=== PATIENT | female | born 1995 | race Caucasian/White ===

== ENCOUNTER 2016-12-02 14:29 | Emergency (ER) | payer OTHER ==
[2016-12-02 14:38] VITALS: BP 115/82; PULSE 75; RESP 18
--- NOTE | 2016-12-02 17:58 | ED.REPORT ---
HPI-Head Prob / Injury Date of Service Dec 02, 2016 ED Provider: Marc Cabrales MD Pt is a 21 y/o healthy female presenting to the ED due to minor facial injury onset prior to arrival. The patient was walking outside the hospital and slipped on the sidewalk and had a facial injury. She was able to walk into the ED without problem prior to arrival. She c/o associated dizziness, mild right wrist pain. Pt denies vomiting, neck pain, change LOC, vision change. The patient was walking to the CT scan area to receive an abdominal CT scan because she has been having abdominal pain for a few weeks. The scan was ordered by Eyal Barreto. Nursing Notes Stated Complaint: FELL HIT FACE Chief Complaint: Head, Face, Neck Trauma Nursing Notes Reviewed: Yes Allergies: Coded Allergies: No Known Allergies (Unverified , 12/02/16) General Time Seen by Provider: 18:19 Chief Complaint Abrasion Hx Obtained From: Patient Arrived By: Walk-in Onset Occurred: Just prior to arrival Symptom Duration: Since onset Progression Since Onset: Unchanged Caused by: Fall from (ground) Location: : Chin: Mouth Quality: Painful Severity: Current: Mild Severity: Maximum: Mild Similar Sx Previous: No Past Medical History Past Medical History Migraines Past Surgical History None reported Smoking History Unknown if Ever Smoker Ambulatory Status Independent Review of Systems GI: Denies: Abdominal pain, Vomiting Musculoskeletal: Denies: Neck pain Neurologic: Reports: Dizziness, Headache, Denies: Change LOC, Syncope Complete sys rev & neg: except as marked. Cardiovascular: Denies: Chest pain Physical Exam Initial Vital Signs Vital Signs (First) Date Time Temp Pulse Resp B/P Pulse Ox O2 Delivery O2 Flow Rate FiO2 12/02/16 14:38 36.7 75 18 115/82 Room Air 12/02/16 18:35 99 Initial VS: Reviewed, Vital signs normal Respiratory: Breath sounds normal, Clear to auscultation, No respiratory distress Cardiovascular: Regular rate & rhythm, Heart sounds normal, Intact distal pulses Abdomen / GI: Soft, Non-tender, No guarding, No rebound, No distention Skin: Warm, Dry, No cyanosis Psychiatric: Mood/affect normal, Behavior normal, Normal thought content Head / Eyes: Atraumatic, Normocephalic, PERRL, EOMI, No nystagmus, No periorbital redness, No periorbital swelling Abrasion upper lip Abrasion over chin, right ala, bridge - do not require sutures ENT: Atraumatic, Airway patent, Mucous membranes moist, Pharynx NL, Nose exam NL Large hemotoma upper lip, more on left than right Normal occlusion Tooth #9 tender Mild blood around tooth #8 and #9 Neck: Atraumatic, Supple, No meningismus, Full range of motion, No swelling, Non-tender, No midline vertebral tend Neurologic: Oriented X3, Speech NL, No motor deficits, No sensory deficits, CN II - XII intact, Cerebellar NL, Memory NL Upper Extremity / MS: Full range of motion, No swelling, Non-tender, No snuffbox tenderness, No erythema, No deformity, Neurologic intact, Vascular intact, No ligamentous injury, Tendon function NL, No compartment syndrome, No circumferential injury, No clubbing/cyanosis, No edema Interpretation & Diagnostics Lab Results Interpretation Test 12/02/16 17:50 Hold Urine Received (Received) Re-Eval/Medical Decision Source of Hx: Old records Re-Evaluation/Progress : Time of Eval: 18:27 Patient Status: Condition improved, Moderate relief, Pain improved Re-Evaluation/Progress Note: Pt rechecked. Informed pt of plan for treatment. Pt understands and agrees with plan for treatment. F/U instructions and RTER warnings given. All questions addressed. Counseled Regarding: Diagnosis, Need for follow-up, When/why to return to ED Discharge & Departure Primary Impression: Facial abrasion Encounter type: initial encounter Qualified Code: S00.81XA - Abrasion of other part of head, initial encounter Additional Impressions: Fall from ground level Tooth injury Disposition: Home All VS Reviewed: Yes Condition: Stable Patient Instructions: Abrasion (ED), Acute Wound Care (ED), Minor Head Injury ( ED) Additional Instructions: No dangerous injuries are discovered on your examination today. Use ibuprofen 800 mg every 8 hours as needed for pain. You can also use additionally, Tylenol 1000 mg every 6 hours for pain. I recommend ice packs as needed for pain for the first couple of days. Use antibiotic ointment 2-3 times a day to keep the wound moist. After 3 days begin using Mederma with sunblock 2 or 3 times daily to prevent scarring or minimize scarring over the next 6-12 months. Follow-up with a dentist in the coming days to make sure that your tooth is okay. I did not feel that suturing was indicated. Her tetanus immunization was updated today. Follow-up right away for signs or symptoms of infection. Referrals: Eyal Barreto DO (PCP) Robin Attestation Portions of this note were transcribed by Chuy Ruano. I, Dr. Cabrales personally performed the history, physical exam and medical decision-making; I reviewed and confirmed the accuracy of the information in the transcribed note. Signed by Robin Cuadra, 12/02/16 - 1844 copies to: Eyal Barreto Kirk H MD Dec 02, 2016 17:58 CHUY RUANO Dec 02, 2016 18:28
[2016-12-02] MEDS ORDERED: TdaP Vaccine 0.5 mL Inj IM ONE (18:10)
[2016-12-02] MEDS ORDERED: Ketorolac 30 mg/mL 2 mL Inj IM ONE (18:10)
[2016-12-02 18:35] VITALS: BP 109/76; PULSE 97; RESP 20; O2SAT 99
[2016-12-02 19:20] VITALS: BP 118/86; PULSE 78; RESP 16; O2SAT 99
== END 2016-12-02 19:22 | disposition home or self-care (01) ==
LOC: SED 14:29
DX: S00.502A Unspecified superficial injury of oral cavity, initial encounter (principal); S00.81XA Abrasion of other part of head, initial encounter; W01.0XXA Fall on same level from slipping, tripping and stumbling without subsequent striking against object, initial encounter; Y93.01 Activity, walking, marching and hiking; Y99.8 Other external cause status; Y92.481 Parking lot as the place of occurrence of the external cause; Z23 Encounter for immunization
CPT/HCPCS: 81025; 90471; 90715; 96372; 99284; J1885

== ENCOUNTER 2017-05-10 15:34 | Emergency (ER) | payer OTHER ==
[~2017-05-10] VITALS: Ht 172.7 cm; Wt 72.7 kg
[2017-05-10 15:45] VITALS: BP 118/64; PULSE 81; O2SAT 99
--- NOTE | 2017-05-10 16:56 | ED.REPORT ---
HPI-Facial Injury Date of Service May 10, 2017 ED Provider: Dr. 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 Associated symptoms include 7/10 head pain, slight headache, abrasion over the right eye, and dizziness. She denies nausea and syncope prior to fall. Her PCP is Dr. Eyal Barreto. Nursing Notes Stated Complaint: DIZZINESS Chief Complaint: Multiple Trauma/Fall Nursing Notes Reviewed: Yes Allergies: Coded Allergies: No Known Allergies (Unverified , 12/02/16) General Time Seen by Provider: 16:57 Chief Complaint Abrasion Hx Obtained From: Patient Arrived By: Ambulance Onset Occurred: Just prior to arrival Symptom Duration: Since onset Caused by: Fall Location: : Forehead Quality: Painful Severity: Current: Pain level 7 out of 10 Associated with: Reports: Headache Recent Healthcare: No recent doctor visit, No recent hospitalization Similar Sx Previous: No Past Medical History Past Medical History Migraines Past Surgical History None reported Smoking History Unknown if Ever Smoker Ambulatory Status Independent Review of Systems Skin: Reports Bruising, Reports Swelling Neurologic: Reports: Dizziness, Headache, Denies: Change LOC, Syncope Complete sys rev & neg: except as marked. GI: Denies: Nausea Hematologic: Reports Bleeding (laceration above right eye), Reports Bruising ( hematoma above right eye) Physical Exam Initial Vital Signs Vital Signs (First) Date Time Temp Pulse Resp B/P Pulse Ox O2 Delivery O2 Flow Rate FiO2 05/10/17 15:45 36.8 81 118/64 99 Room Air 05/10/17 19:59 18 Initial VS: Reviewed Head / Eyes: Normocephalic, PERRL, EOMI hematoma above right eye 2cm, Y shaped laceration above right eyebrow ENT: Atraumatic, Airway patent, Tympanic membs NL no hemotympanum Neck: Atraumatic, Non-tender Neurologic: Oriented X3, No motor deficits Speech: Positive: Slow Skin: Atraumatic, Color NL, No rash Upper Extremity / MS: Atraumatic, Inspection NL, Full range of motion, No deformity Lower Extremity / Pelvis / MS: Atraumatic, Inspection NL, Full range of motion , No deformity Interpretation & Diagnostics CT Head Interpretation IMPRESSION: 1. No acute intracranial process. Dictated by: Elizabeth Cullen M.D. on 05/10/2017 at 17:45 Approved by: Elizabeth Cullen M.D. on 05/10/2017 at 17:46 Study: Head CT no contrast Interpretation / Wet Read by: Interpret - Radiologist Procedures Laceration Management Time: 19:28 Procedure Performed by: ED physician Consent / Setup / Site Prep: Informed consent provided, Consent from patient Location of Wound: Y shaped laceration above right eyebrow Wound Length: 2 cm Local Anesthesia: Lidocaine w epi 1% Wound Preparation: Betadine Debridement: None Irrigation: Copious Foreign Body Explore / Removal: Explored for foreign body Repair Skin: ___ O (6), Nylon # Sutures - Skin: 3 Suture Technique: Simple Post-Procedure / Complications: Antibiotic oint applied, No complications, Condition improved, Tolerated procedure well, Patient stable Re-Eval/Medical Decision Re-Evaluation/Progress #1: Time of Eval: 17:01 Re-Evaluation/Progress Note: Pt requests a CT head. Re-Evaluation/Progress #2: Time of Eval: 19:22 Patient Status: Condition improved, Pain improved Re-Evaluation/Progress Note: Pt rechecked. She is more awake and pain is slightly improved. Informed pt of normal head CT. Plan for laceration management. Counseled Regarding: Diagnosis, Lab results, Need for follow-up, When/why to return to ED Discharge & Departure Impression: Primary Impression: Facial laceration Encounter type: initial encounter Qualified Code: S01.81XA - Laceration without foreign body of other part of head, initial encounter Additional Impressions: Minor head injury Encounter type: initial encounter Qualified Code: S00.90XA - Unspecified superficial injury of unspecified part of head, initial encounter Fall from ground level Disposition: Home Discharge Condition All VS Reviewed: Yes Condition: Stable Patient Instructions: Care For Your Stitches (ED), Stitches Removal (ED) Additional Instructions: Thank you for entrusting us with your care today. Emergency Department evaluation included interview, examination, and CT brain. Your CT did not show any abnormalities. You may still have a mild concussion. Get plenty of rest and refrain from strenuous physical and mental activities. Follow up with your primary care physician or return to the Emergency Department in 5 days to have the stitches removed. Keep the wound clean and dry and apply antibiotic ointment twice daily. After the stitches come out, use sunscreen so the wound does not scar. Return to the Emergency Department if you experience any new or worsening symptoms including vomiting, loss of consciousness, dizziness, or lightheadedness. I hope you feel better soon! Referrals: Eyal Barreto DO (PCP) Uziel Attestation Portion of this note were transcribed by Cece Alfred. I, Dr. Browne, personally performed the history, physical exam, and medical decision-making: I reviewed and confirmed the accuracy for the information in the transcribed note. Signed by: uziel Kimball, 05/10/17 1800 copies to: Eyal Barreto Donald L MD May 10, 2017 16:56 Cece Alfred May 10, 2017 17:03
--- NOTE | 2017-05-10 17:47 | DRSVH ---
PROCEDURE: CT BRAIN WITHOUT CONTRAST ([id number]) INDICATIONS: fall head injury TECHNIQUE: Noncontrast 4.5 mm thick angled axial sections acquired from the foramen magnum to the vertex, with c oronal reformats. COMPARISON: [facility], MR, BRAIN W&W/O CONTRAST, 10/11/2013, 14:26. FINDINGS: Image quality: Excellent. CSF spaces: Basal cisterns are patent. No extra-axial fluid collections. Ventricles are normal in size and shape. Brain: No midline shift. No intracranial masses or hemorrhage. Prince-white matter interface is norm al. Skull and face: Calvarium and visualized facial bones are intact, without suspicious lesions. Sinuses: Visualized sinuses and mastoids are clear. IMPRESSION: 1. No acute intracranial process. Dictated by: Elizabeth Cullen M.D. on 05/10/2017 at 17:45 Approved by: Elizabeth Cullen M.D. on 05/10/2017 at 17:46
[2017-05-10 18:59] VITALS: BP 102/61; PULSE 78; O2SAT 98
[2017-05-10 19:59] VITALS: BP 98/56; PULSE 74; RESP 18; O2SAT 97
== END 2017-05-10 20:00 | disposition home or self-care (01) ==
LOC: EDBD 15:34 → SED 15:34
DX: S01.81XA Laceration without foreign body of other part of head, initial encounter (principal); S09.8XXA Other specified injuries of head, initial encounter; W18.39XA Other fall on same level, initial encounter; Y93.89 Activity, other specified; Y92.89 Other specified places as the place of occurrence of the external cause; Y99.8 Other external cause status